=== PATIENT | female | born 2000 | race Caucasian/White ===

== ENCOUNTER 2022-05-26 15:50 | Outpatient (CLI) | payer OTHER ==
[~2022-05-26] VITALS: Ht 157.5 cm; Wt 92.2 kg
[2022-05-26 16:00] VITALS: BP 121/72
--- NOTE | 2022-05-26 18:41 | Diagnostic Imaging Report ---
INDICATION: well-being Patient presents for biophysical profile. Fetus scored 2/2 on breathing, movement, posture and tone, and amniotic fluid index. Amniotic fluid index is 13.4 cm. Fetus is in cephalic presentation. heart rate is 129 bpm. IMPRESSION: biophysical profile score 8 out of 8. Dictated by: Dictated on workstation # [id number]
--- NOTE | 2022-05-30 08:36 | Physician Query-Final Dx ---
YESENIA,05/30/22 0836: Clinic Account Progress/Dx Physician Query: Please give diagnosis Please include # weeks gestation Date of Service May 26, 2022 at 15:50 BHUPINDER BABCOCK MD 05/31/22 0213: Clinic Account Progress/Dx DIAGNOSIS: Diagnosis 38 weeks gestation Borderline bradycardia YESENIA,JunMay 30, 2022 08:36 BHUPINDER BABCOCK MD May 31, 2022 02:13
== END 2022-05-26 17:27 ==
LOC: LDRP 15:50 → WSo 15:50
PROVIDERS: ATTEND Family Medicine
DX: Z34.93 Encounter for supervision of normal pregnancy, unspecified, third trimester (principal); Z3A.38 38 weeks gestation of pregnancy
CPT/HCPCS: 76819; G0463; 99212

== ENCOUNTER → 2022-06-09 | Outpatient (CLI) | payer OTHER ==
[~2022-06-09] MED LIST: PNV-9 PO
--- NOTE | 2022-06-09 11:38 | Diagnostic Imaging Report ---
EXAM: US BIOPHYSICAL PROFILE [id number] INDICATION: 3rd trimester care. COMPARISON: 05/26/2022. FINDINGS: No breathing movements are identified. VIKAS 6.4 cm. Cephalic presentation. heart rate 130 bpm. Normal movements, posture, tone and amniotic fluid volume. IMPRESSION: Biophysical profile score of 6/8. No breathing movements were observed during the exam. This is a change compared to 05/26/2022. Called to [place] at 11:35 a.m. by cvb. Dictated by: Dictated on workstation # [id number]
== END ==
LOC: RAD 10:17
PROVIDERS: ATTEND Family Medicine
DX: Z34.93 Encounter for supervision of normal pregnancy, unspecified, third trimester (principal); Z3A.00 Weeks of gestation of pregnancy not specified
CPT/HCPCS: 76819

== ENCOUNTER 2022-06-13 05:46 | Outpatient (CLI) | payer OTHER ==
[~2022-06-13] VITALS: Ht 157.5 cm; Wt 91.7 kg
[2022-06-13] MEDS ORDERED: PNV-9 PO (06:11)
[2022-06-13 06:21] LABS: BILIRUBIN,URINE NEGATIVE (NEGATIVE); CLARITY,URINE CLEAR; COLOR,URINE YELLOW; GLUCOSE, URINE (UA) NEGATIVE (NEGATIVE); KETONES,URINE NEGATIVE (NEGATIVE); LEUKOCYTE ESTERASE ,URINE 2+ (NEGATIVE); NITRITE,URINE NEGATIVE (NEGATIVE); PH,URINE 6.5 (5-9); PROTEIN,URINE NEGATIVE (NEGATIVE)
[2022-06-13 06:26] VITALS: BP 123/78
[2022-06-13 06:29] LABS: BACTERIA,URINE MODERATE /HPF; RBC,URINE 0-2 /HPF; SQUAMOUS EPITHELIAL CELL,UR 0-2 /HPF
[2022-06-13 06:37] VITALS: BP 116/74
[2022-06-13 07:08] VITALS: BP 125/76
[2022-06-13 07:37] VITALS: BP 121/69
[2022-06-13 08:06] LABS: BILIRUBIN,URINE NEGATIVE (NEGATIVE); CLARITY,URINE CLEAR; COLOR,URINE YELLOW; GLUCOSE, URINE (UA) NEGATIVE (NEGATIVE); KETONES,URINE NEGATIVE (NEGATIVE); LEUKOCYTE ESTERASE ,URINE NEGATIVE (NEGATIVE); NITRITE,URINE NEGATIVE (NEGATIVE); PH,URINE 6.5 (5-9); PROTEIN,URINE NEGATIVE (NEGATIVE)
[2022-06-13 08:13] LABS: BACTERIA,URINE NEGATIVE /HPF
--- NOTE | 2022-06-14 08:21 | Physician Query-Final Dx ---
Clinic Account Progress/Dx Physician Query: Please give diagnosis Please include # weeks gestation Date of Service Jun 13, 2022 at 05:46 ,JunJun 14, 2022 08:21
== END 2022-06-13 08:41 | disposition home or self-care (01) ==
LOC: LDRP 05:46 → WSo 05:46
PROVIDERS: ATTEND Family Medicine
DX: Z34.90 Encounter for supervision of normal pregnancy, unspecified, unspecified trimester (principal)
CPT/HCPCS: 81000; 87088; G0463; 99213

== ENCOUNTER 2022-06-13 21:26 | Inpatient (IN) | payer OTHER ==
[~2022-06-13] VITALS: Ht 157.5 cm; Wt 92.5 kg
[2022-06-13 22:00] VITALS: BP 121/78
[2022-06-13] MEDS ORDERED: MINERAL OIL 30 ML UDC TOP PRN (22:00)
[2022-06-14] VITALS (61 sets, daily range): BP systolic 98–172; BP diastolic 52–102
[2022-06-14] MEDS ORDERED: D5 LR IV SOLUTION 1,000 ML IV SCH (02:00)
[2022-06-14 02:02] LABS: BASOPHILS % (AUTO) 0 % (0-10); EOSINOPHILS % (AUTO) 0 % (0-10); HEMATOCRIT 27 % (35-52); HEMOGLOBIN 8.1 g/dL (11.5-16.0); LYMPHOCYTES # (AUTO) 2.1 10^3/uL (1.0-4.0); LYMPHOCYTES % (AUTO) 12 % (12-44); MEAN CORPUSCULAR HEMOGLOBIN 20 pg (25-34); MEAN CORPUSCULAR HGB CONC 30 g/dL (32-36); MEAN CORPUSCULAR VOLUME 67 fL (80-99); MEAN PLATELET VOLUME 11.5 fL (9.0-12.2); MONOCYTES % (AUTO) 5 % (0-12); NEUTROPHILS # (AUTO) 14.6 10^3/uL (1.8-7.8); NEUTROPHILS % (AUTO) 82 % (42-75); PLATELET COUNT 287 10^3/uL (130-400); WHITE BLOOD COUNT 17.9 10^3/uL (4.3-11.0)
[2022-06-14] MEDS ORDERED: fentaNYL 2 mcg/ml BUPIVA 0.125 100 ML ONE (02:02)
[2022-06-14] MEDS ORDERED: LACTATED RINGERS 1,000 ML IV ONE ×2 (02:15→02:45)
[2022-06-14] MEDS: D5 LR IV SOLUTION 1,000 ML IV SCH ×2 (02:22→10:20)
[2022-06-14] MEDS ORDERED: ONDANSETRON 4 MG/2 ML (SDV) Z0FRAN ONE (02:40)
[2022-06-14] MEDS ORDERED: NALOXONE 0.4 MG/ML 1 ML (NARCAN) VIAL IV PRN ×2 (02:45→14:45)
[2022-06-14] MEDS ORDERED: CATHETER FLUSH 10 ML SYR IV PRN (02:45)
[2022-06-14] MEDS ORDERED: ONDANSETRON 4 MG/2 ML (SDV) Z0FRAN IV PRN (02:45)
[2022-06-14] MEDS ORDERED: BUPIVACAINE 0.25% 30 ML (SENSORCAINE) VIAL ONE (02:46)
[2022-06-14] MEDS ORDERED: fentaNYL INJ 100 MCG/2 ML AMP ONE (02:46)
[2022-06-14] MEDS: fentaNYL 2 mcg/ml BUPIVA 0.125 100 ML IV SCH ×2 (03:11→09:35)
[2022-06-14] MEDS ORDERED: fentaNYL INJ 100 MCG/2 ML AMP INJ ONE (03:15)
[2022-06-14] MEDS ORDERED: OXYTOCIN PRE-MIX DRIP 500 ML IV ONE (08:06)
[2022-06-14] MEDS ORDERED: MEPIVACAINE (CARBOCAINE) 2% 50 ML VIAL ONE (08:07)
--- NOTE | 2022-06-14 08:23 | History & Physical-OB ---
OB - Chief Complaint & HPI Date/Time Date of Admission: Date of Admission: Jun 13, 2022 at 21:49 Date seen by a Provider: Jun 14, 2022 Time Seen by a Provider: 08:05 Chief Complaint/History OB-Reason for Admission/Chief: Rupture of Membranes Hx : 1 Hx Para: 0 Expected Date of Delivery: Jun 06, 2022 Gestational Age in Weeks: 41 Gestational Age in Days: 0 Admission Nurse Assessment Rev: Yes History of Labs GBS negative perineal at 36 weeks Other 22-year-old 1 para 0 currently at 41 weeks gestation who presents with spontaneous rupture of membranes during the evening of June 13, 2022. Her LMP is August 30, 2021 with an EDC based upon early ultrasound of June 06, 2022. She was at 11 weeks 4 days gestation on initial ultrasound. Her GBS status performed in April was noted to be negative. She had biophysical profile 1 week ago which revealed 6/8. Allergies and Home Medications Allergies Coded Allergies: Penicillins (Verified Allergy, Unknown, 05/26/22) Patient Home Medication List Home Medication List Reviewed: Yes Pnv 119/Iron Fum/Folic Acid ( 19 Tablet) 29 Mg Iron-1 Mg Tablet, 1 EACH PO DAILY, (Reported) Entered as Reported by: Roxie Stewart on 06/13/22 0611 Last Action: Reviewed OB - History Hx of Present Care: Yes Obstetrical Complications: None Medical Complications: None Patient Past Medical History no chronic medical problems Social History/Family History Alcohol Use: Denies Use Recreational Drug Use: No 2nd Hand Smoke Exposure: No Immunizations Influenza Vaccine Up-to-Date: No; Not Current OB - Admission Exam Physical Exam Vitals: Vital Signs 06/14/22 06/14/22 06:30 07:00 Temp 36.1 Pulse 66 Resp 18 B/P (MAP) 116/59 (78) Pulse Ox 98 O2 Delivery Room Air HEENT: Moist Membranes Heart: Rhythm Normal Abdomen: Gravid Cervical Dilatation: 9cm (at my exam at 0805 06/14) Labs Laboratory Tests Test 06/14/22 01:45 Range/Units White Blood Count 17.9 H 4.3-11.0 10^3/uL Red Blood Count 4.11 3.80-5.11 10^6/uL Hemoglobin 8.1 L 11.5-16.0 g/dL Hematocrit 27 L 35-52 % Mean Corpuscular Volume 67 L 80-99 fL Mean Corpuscular Hemoglobin 20 L 25-34 pg Mean Corpuscular Hemoglobin Concent 30 L 32-36 g/dL Red Cell Distribution Width 15.5 H 10.0-14.5 % Platelet Count 287 130-400 10^3/uL Mean Platelet Volume 11.5 9.0-12.2 fL Immature Granulocyte % (Auto) 1 % Neutrophils (%) (Auto) 82 H 42-75 % Lymphocytes (%) (Auto) 12 12-44 % Monocytes (%) (Auto) 5 0-12 % Eosinophils (%) (Auto) 0 0-10 % Basophils (%) (Auto) 0 0-10 % Neutrophils # (Auto) 14.6 H 1.8-7.8 10^3/uL Lymphocytes # (Auto) 2.1 1.0-4.0 10^3/uL Monocytes # (Auto) 1.0 0.0-1.0 10^3/uL Eosinophils # (Auto) 0.0 0.0-0.3 10^3/uL Basophils # (Auto) 0.0 0.0-0.1 10^3/uL Immature Granulocyte # (Auto) 0.2 H 0.0-0.1 10^3/uL Thyroid Stimulating Hormone (TSH) 1.55 0.35-4.94 UIU/ML OB - Assessment/Plan/Diagnosis Assessment Assessment: rupture of membranes (at 41 weeks gestation in labor) Admission Dx 1. IUP at 41 weeks in labor and with SROM Admission Status: Inpatient Order (span 2 midnights) Reason for Inpatient Admission: L&D Plan Plan: Expectant Management Other Plan -initially didn't want IV or IVFs. She wanted a minimal approach to delivery -she had change of mind and agreed with IV to receive epidural at 0200 today. -She doesn't desire any pitocin RAOUL ACOSTA MD Jun 14, 2022 08:23
[2022-06-14] MEDS ORDERED: MEPIVACAINE (CARBOCAINE) 2% 50 ML VIAL INJ ONE (13:30)
--- NOTE | 2022-06-14 14:35 | OB Labor & Delivery Record ---
L&D History Date of Service Date of Service: Jun 14, 2022 History Expected Date of Delivery: Jun 06, 2022 Gestational Age in Weeks: 41 Hx : 1 Hx Para: 1 Complications Events: Routine care Operative Indications (Cesarea: N/A-Vaginal Delivery Intrapartal Events: Prolonged 2nd Stge >2.5hr L&D Stage1 Stage One Onset of Labor - Date: Jun 14, 2022 Onset of Labor - Time: 21:00 Monitors and Tracing Monitor Mode: External Heart Rate: 110 Monitor Accelerations: None Monitor Decelerations: None Station: -2 Prison Variability: Average (6-10) Short Term Variability: Present Presentation: Vertex Vital Signs VS - Last 72 Hours, by Label 06/13/22 06/13/22 06/14/22 06/14/22 22:00 22:00 00:30 02:53 Temp 36.8 36.8 36.2 Pulse 88 91 85 94 Resp 18 18 18 18 B/P (MAP) 121/78 (92) 130/65 (86) 135/77 (96) Pulse Ox 98 98 98 O2 Delivery Room Air Room Air Room Air Room Air 06/14/22 06/14/22 06/14/22 06/14/22 02:56 02:59 03:02 03:05 Pulse 81 89 84 83 Resp 18 18 18 18 B/P (MAP) 140/79 (99) 135/75 (95) 118/71 (87) 123/76 (92) Pulse Ox 98 99 99 97 O2 Delivery Room Air Room Air Room Air Room Air 06/14/22 06/14/22 06/14/22 06/14/22 03:08 03:10 03:13 03:17 Pulse 82 79 82 78 Resp 18 18 18 18 B/P (MAP) 121/62 (81) 125/58 (80) 122/58 (79) 124/59 (80) Pulse Ox 97 98 98 97 O2 Delivery Room Air Room Air Room Air Room Air 06/14/22 06/14/22 06/14/22 06/14/22 03:23 03:28 03:32 03:39 Pulse 75 70 71 70 Resp 18 18 18 18 B/P (MAP) 126/61 (82) 125/59 (81) 125/58 (80) 117/56 (76) Pulse Ox 97 97 97 97 O2 Delivery Room Air Room Air Room Air Room Air 06/14/22 06/14/22 06/14/22 06/14/22 03:42 04:00 04:15 04:30 Temp 36.9 Pulse 69 70 71 69 Resp 18 18 18 18 B/P (MAP) 121/59 (79) 116/59 (78) 116/56 (76) 116/59 (78) Pulse Ox 97 96 96 96 O2 Delivery Room Air Room Air Room Air Room Air 06/14/22 06/14/22 06/14/22 06/14/22 04:45 05:00 05:15 05:30 Pulse 69 70 70 70 Resp 18 18 18 18 B/P (MAP) 115/55 (75) 116/59 (78) 122/64 (83) 117/59 (78) Pulse Ox 96 96 96 96 O2 Delivery Room Air Room Air Room Air Room Air 06/14/22 06/14/22 06/14/22 06/14/22 05:45 06:00 06:15 06:30 Temp 36.1 Pulse 69 69 73 69 Resp 18 18 18 18 B/P (MAP) 121/58 (79) 117/56 (76) 120/66 (84) 116/57 (76) Pulse Ox 96 96 96 98 O2 Delivery Room Air Room Air Room Air Room Air 06/14/22 06/14/22 06/14/22 06/14/22 06:45 07:00 07:15 07:30 Pulse 71 66 75 72 Resp 18 18 18 18 B/P (MAP) 114/59 (77) 116/59 (78) 104/54 (71) 106/59 (75) Pulse Ox 98 98 98 98 O2 Delivery Room Air Room Air Room Air Room Air 06/14/22 06/14/22 06/14/22 06/14/22 07:45 08:00 08:15 08:30 Temp 36.5 Pulse 67 67 76 71 Resp 18 18 18 18 B/P (MAP) 107/55 (72) 102/65 (77) 111/59 (76) 109/53 (71) Pulse Ox 97 98 98 98 O2 Delivery Room Air Room Air Room Air Room Air 06/14/22 06/14/22 06/14/22 06/14/22 08:45 09:00 09:15 09:30 Pulse 78 77 77 77 Resp 18 18 18 18 B/P (MAP) 107/56 (73) 103/57 (72) 103/57 (72) 113/52 (72) Pulse Ox 98 98 98 98 O2 Delivery Room Air Room Air Room Air Room Air Signs of Distress by FHT Signs of Distress no Rupture of Membranes Spontaneous Ruture of Membrane: Yes Amniotic Membrane Rupture Time: 2100 Amniotic Membrane Fluid Desc.: Clear Induction/Anesthesia Epidural Cath Placement - Time: 257 L&D Stage2 Stage Two Stage II Date: Jun 14, 2022 Stage II Time: 14:03 Monitors and Tracing Monitor Mode: External Heart Rate: 110 Monitor Accelerations: Uniform Monitor Decelerations: Variable Prison Variability: Average (6-10) Short Term Variability: Present Position: Left Occiput Anterior Presentation: Vertex Cord Descript/Complications Cord Vessel Description: 3 Vessels Delivery Type Delivery Method: Low Vacuum Extraction Anterior Shoulder: Left Episiotomy/Perineal Laceration Laceraction(s)/Extensions: Yes Episiotomy Description: Midline Sutures Used: Vicryl Condition of Infant Delivery 1 minute Comment: 8 5 minute Comment: 9 Condition of Infant Condition of Infant: Living Exam: No Observed Abnormalities Resuscitation Resuscitation: N/A - Spontaneous Resp L&D Stage3 Stage Three Stage III Date: Jun 14, 2022 Stage III Time: 14:10 Pictocin Pitocin ml/hr: 125 Placenta Delivery Placenta Delivery: Spontaneous Delivery Summary Summary Estimated blood loss (mL): 300 Condition of Delivery Examined: Cervix Examined Post Hemorrhage: No Intervention Required uterine message RAOUL ACOSTA MD Jun 14, 2022 14:35
[2022-06-14] MEDS: IBUPROFEN 600 MG (MOTRIN) TAB PO SCH ×3 (14:45→20:45)
[2022-06-14] MEDS ORDERED: TETANUS,DIPTH,PERTUSS P/F (BOOSTRIX) 0.5 ML VIAL IM ONE (14:45)
[2022-06-14] MEDS ORDERED: WITCH HAZEL(TUCKS) 40 EA JAR TOP PRN (14:45)
[2022-06-14] MEDS: ACETAMINOPHEN 500 MG TAB (TYLENOL) PO SCH ×3 (14:45→20:45)
[2022-06-14] MEDS ORDERED: BENZOCAINE/MENTHOL (DERMOPLAST) 56 ML CAN TP PRN (14:45)
[2022-06-14] MEDS ORDERED: OXYTOCIN PRE-MIX DRIP 500 ML IV SCH (14:45)
[2022-06-14] MEDS ORDERED: MEASLES,MUMPS,RUBELLA 1 EA INJ SQ ONE (14:45)
[2022-06-14] MEDS: DOCUSATE SODIUM 100 MG (COLACE) CAP PO SCH (20:05)
[2022-06-14] MEDS ORDERED: CATHETER FLUSH 10 ML SYR IV SCH (22:00)
[2022-06-15 03:15] VITALS: BP 112/65
[2022-06-15 08:30] LABS: BASOPHILS % (AUTO) 0 % (0-10); EOSINOPHILS # (AUTO) 0.1 10^3/uL (0.0-0.3); EOSINOPHILS % (AUTO) 1 % (0-10); HEMATOCRIT 22 % (35-52); LYMPHOCYTES # (AUTO) 2.7 10^3/uL (1.0-4.0); LYMPHOCYTES % (AUTO) 18 % (12-44); MEAN CORPUSCULAR HEMOGLOBIN 20 pg (25-34); MEAN CORPUSCULAR HGB CONC 29 g/dL (32-36); MEAN CORPUSCULAR VOLUME 68 fL (80-99); MONOCYTES # (AUTO) 0.6 10^3/uL (0.0-1.0); MONOCYTES % (AUTO) 4 % (0-12); NEUTROPHILS # (AUTO) 11.2 10^3/uL (1.8-7.8); NEUTROPHILS % (AUTO) 76 % (42-75); PLATELET COUNT 222 10^3/uL (130-400); WHITE BLOOD COUNT 14.7 10^3/uL (4.3-11.0)
[2022-06-15 08:42] LABS: HEMOGLOBIN 6.3 g/dL (11.5-16.0)
[2022-06-15 08:45] VITALS: BP 112/66
[2022-06-15] MEDS: ACETAMINOPHEN 500 MG TAB (TYLENOL) PO SCH ×2 (08:45→14:45)
[2022-06-15] MEDS: IBUPROFEN 600 MG (MOTRIN) TAB PO SCH (08:45)
[2022-06-15] MEDS: DOCUSATE SODIUM 100 MG (COLACE) CAP PO SCH (09:00)
--- NOTE | 2022-06-15 12:06 | Discharge Inst-Women's Service ---
Discharge Inst-Women's Serv Depart Medication/Instructions New, Converted or Re-Newed RX: Other Instructions may have ibuprofen OTC 200mg 2 or 3 every 6 hours from cramping Problems Reviewed?: Yes Consults/Follow Up Additional Follow Up: Yes (Dr Holley in 6 weeks) Activity Activity: Activity as Tolerated Driving Instructions: No Driving for 1 Week Nothing Inside Vagina: No [place] (for 6 weeks) Diet Discharge Diet: Regular Diet Return to The Hospital For: as below Symptoms to Report to : Bleeding Excessive, Pain Increased, Vaginal Discharge Foul For Any Problems or Questions: Contact Your Physician RAOUL ACOSTA MD Jun 15, 2022 12:06
--- NOTE | 2022-06-15 12:07 | Discharge Summary ---
Diagnosis/Chief Complaint Date of Admission Jun 13, 2022 at 21:49 Date of Discharge Discharge Summary-OBS Procedures None. Discharge Physical Examination Allergies: Coded Allergies: Penicillins (Verified Allergy, Unknown, 05/26/22) Vitals & I&Os Intake and Output 06/15/22 00:00 Intake Total 1300 ml Balance 1300 ml Vital Sign - Last 12Hours Date Time Temp Pulse Resp B/P (MAP) Pulse Ox O2 Delivery O2 Flow Rate FiO2 06/15/22 08:45 36.1 68 18 112/66 (81) 99 Room Air Hospital Course Labs Laboratory Tests 06/15/22 08:20: White Blood Count 14.7H, Red Blood Count 3.22L, Hemoglobin 6.3#*L, Hematocrit 22L, Mean Corpuscular Volume 68L, Mean Corpuscular Hemoglobin 20L, Mean Corpuscular Hemoglobin Concent 29L, Red Cell Distribution Width 15.7H, Platelet Count 222, Mean Platelet Volume 11.0, Immature Granulocyte % (Auto) 1, Neutrophils (%) (Auto) 76H, Lymphocytes (%) (Auto) 18, Monocytes (%) (Auto) 4, Eosinophils (%) (Auto) 1, Basophils (%) (Auto) 0, Neutrophils # (Auto) 11.2H, Lymphocytes # (Auto) 2.7, Monocytes # (Auto) 0.6, Eosinophils # (Auto) 0.1, Basophils # (Auto) 0.0, Immature Granulocyte # (Auto) 0.1 Discharge Instructions to patient/family Please see electronic discharge instructions given to patient. Discharge Medications Reviewed and agree with Discharge Medication list on patient's Discharge Instruction sheet RAOUL ACOSTA MD Jun 15, 2022 12:07
[2022-06-15 12:10] VITALS: BP 113/61
[2022-06-15 16:35] VITALS: BP 113/61
== END 2022-06-15 16:35 | disposition home or self-care (01) | DRG 807 ==
LOC: WSo 21:26 → LDRP 21:27 → WSo 21:49 → LDRP 06-14 18:13
PROVIDERS: ADMIT Family Medicine; ATTEND Family Medicine
PROC: 10D07Z6 Extraction of Products of Conception, Vacuum, Via Natural or Artificial Opening (ICD-10-PCS; principal; 2022-06-14)
PROC: 0W8NXZZ Division of Female Perineum, External Approach (ICD-10-PCS; 2022-06-14)
DX: O48.0 Post-term pregnancy (principal); Z37.0 Single live birth; Z3A.41 41 weeks gestation of pregnancy
CPT/HCPCS: 36415; 83033; 84443; 85025; 86762; 86765; 86780; 86850; 86900; 86901; 87340; 87389; 99212